=== PATIENT | female | born 1950 | race Hispanic/Latino ===

== ENCOUNTER 2021-06-03 08:34 | Day surgery (SDC) | payer MEDICARE ==
[2021-06-03] MEDS ORDERED: METOPROLOL TARTRATE 50 MG TAB PO SCH (10:00)
[2021-06-03] MEDS ORDERED: NITROGLYCERIN 0.4 MG TAB SUBL SL SCH (10:00)
[2021-06-03] MEDS ORDERED: ATROPINE 0.1% (1 MG/10 ML) CARDIAC SYRINGE ONE (10:14)
[2021-06-03] MEDS ORDERED: METOPROLOL TARTRATE 5 MG/5 ML INJ IV ONE (10:25)
[2021-06-03 10:47] LABS: Blood Urea Nitrogen 18 mg/dL (7-17)
[2021-06-03] MEDS ORDERED: SODIUM CHLORIDE 0.9% 500 ML 500 ML IV SCH (11:15)
--- NOTE | 2021-06-03 14:54 | Cat Scan Report ---
The following report is a radiology over-read of a CT calcium scoring study. CT calcium scoring study is reported separately by Cardiology. CT CALCIUM SCORING OVER-READ TECHNIQUE: Limited CT through the heart and lung bases. All CT scans at this location are performed u sing CT dose reduction for ALARA by means of automated exposure control. COMPARISON: None available. FINDINGS: VISUALIZED LUNGS / PLEURA: 5 mm subpleural nodule in the lateral right middle lobe as seen on axial s eries 3 image 32. SOFT TISSUES: No significant abnormality. SKELETAL SYSTEM: No significant abnormality. ADDITIONAL FINDINGS: No significant additional abnormality. IMPRESSION: 1. Single incidental pulmonary nodule(s) in the right middle lobe measuring 5 mm with solid character istics. Recommendation according to Fleischner Society 2017 Guidelines: Low Risk Patient: No routine follow-up; High Risk Patient: Optional CT at 12 months. Signer Name: Darnell Purvis MD Signed: 06/03/2021 2:49 PM Workstation Name: [id number]
[2021-06-03 15:28] VITALS: BP 142/61
== END 2021-06-03 13:35 | disposition home or self-care (01) ==
LOC: CATHLABREC 08:34 → EDSTATUS 09:45 → CATHLABREC 13:35
PROVIDERS: ATTEND Internal Medicine
DX: I25.10 Atherosclerotic heart disease of native coronary artery without angina pectoris (principal); R07.89 Other chest pain; I10 Essential (primary) hypertension; Z86.73 Personal history of transient ischemic attack (TIA), and cerebral infarction without residual deficits; Z79.899 Other long term (current) drug therapy; Z88.0 Allergy status to penicillin; Z88.1 Allergy status to other antibiotic agents; Z88.2 Allergy status to sulfonamides; Z88.8 Allergy status to other drugs, medicaments and biological substances
CPT/HCPCS: 36415; 75574; 82565; 84520; J7040; Q9967; J0461

== ENCOUNTER 2022-02-28 09:57 | Outpatient (CLI) | payer MEDICARE ==
[2022-02-28 11:50] LABS: Blood Urea Nitrogen 11 mg/dL (7-17)
--- NOTE | 2022-02-28 14:19 | Cat Scan Report ---
CTA NECK WITH CONTRAST HISTORY: CTA NECK WITH CONTRAST HISTORY: Carotid artery stenoses COMPARISON: None. TECHNIQUE: Routine CTA of the neck was performed. 3-D/MIP reformats were postprocessed. Percentage s tenosis is determined by direct quantitative measurements of diseased internal carotid artery diamete r compared with normal distal internal carotid artery reference segments or by criteria similar to NA SCET where applicable.All CT scans at this location are performed using CT dose reduction for ALARA b y means of automated exposure control CONTRAST: 100 ml of Omnipaque 350 FINDINGS: Aortic arch: No significant abnormality. Cervical vertebral arteries: Right vertebral artery: Normal from the origin up to basilar formation Left vertebral artery: Severe stenoses at the origin of left vertebral artery; good antegrade flow; e xtraosseous, foraminal, extraspinal and intradural segments of left vertebral artery are normal. Common carotid arteries: No significant abnormality. Carotid bifurcations: Normal Cervical internal carotid arteries: Right carotid bifurcation: Normal Left carotid bifurcation: Normal Additional findings: None. IMPRESSION: Normal carotid bifurcations Severe stenoses at the origin of left vertebral artery; rest of the left vertebral artery and right v ertebral artery normal Signer Name: Wendi Shah MD Signed: 02/28/2022 2:15 PM Workstation Name: [id number]
== END 2022-02-28 09:58 | disposition home or self-care (01) ==
LOC: CT 09:57
PROVIDERS: ATTEND Internal Medicine
DX: I65.02 Occlusion and stenosis of left vertebral artery (principal); R42 Dizziness and giddiness; I25.10 Atherosclerotic heart disease of native coronary artery without angina pectoris; R07.89 Other chest pain
CPT/HCPCS: 36415; 70498; 82565; 84520; Q9967